=== PATIENT | female | born 1995 | race Caucasian/White ===

== ENCOUNTER → 2021-01-19 | Outpatient (CLI) | payer OTHER ==
--- NOTE | 2021-01-19 07:52 | REP ---
INDICATION: ANATOMY COMPARISON: None. TECHNIQUE: Transabdominal obstetrical ultrasound with color Doppler evaluation. FINDINGS: Examination demonstrates a single live intrauterine in variable presentation. motion is identified by technologist. Placenta is noted anterior and grade 1 without evidence for placenta previa or abruption. Amniotic fluid volume is normal. Cervix measures 4.4 cm in length and appears closed.. Gestational age by LMP 19 weeks 3 days with OPAL 06/12/2021. Gestational age by current measurements 19 weeks 4 days with OPAL 06/11/2021. Gestational age based on 1st trimester examination 18 weeks 5 days with OPAL 06/17/2021. FHR equals 147 beats per minute. BPD: 4.5 cm at there is 19 weeks 4 days HC: 17.0 cm at 19 weeks 4 days AC: 14.3 cm at 19 weeks 5 days FL: 3.0 cm at there is 19 weeks 3 days HL: 3.0 cm at 19 weeks 6 days HC/AC: 1.19 Estimated weight 298 grams (89thpercentile). Anatomical assessment demonstrates normal structures including cranium, choroid plexus, cavum, cerebellum/posterior fossa, facial features, lungs, four-chamber heart/ventricular outflow tracts, diaphragm, stomach, cord insertion/three-vessel cord, kidneys/bladder, spine, and extremities. IMPRESSION: Single live intrauterine in variable presentation demonstrating appropriate interval growth. Anatomical assessment is complete and normal. <Electronically signed by Miguel Alva > 01/19/21 [id number]
== END ==
LOC: M WHC 06:45
PROVIDERS: ATTEND Advanced Practice Midwife
DX: Z34.82 Encounter for supervision of other normal pregnancy, second trimester (principal); Z3A.19 19 weeks gestation of pregnancy

== ENCOUNTER → 2021-03-31 | Outpatient (CLI) | payer OTHER ==
[2021-03-31 15:40] LABS: HEMATOCRIT 35.1 % (36.0-47.0); HEMOGLOBIN 11.3 g/dl (12.0-15.5); MEAN CORPUSCULAR HEMOGLOBIN 31.2 pg (27.0-33.0); MEAN CORPUSCULAR HGB CONC 32.2 g/dl (32.0-36.5); PLATELET COUNT, AUTOMATED 216 10^3/uL (150-450); RED BLOOD COUNT 3.62 10^6/uL (4.00-5.40); WHITE BLOOD COUNT 10.2 10^3/uL (4.0-10.0)
== END ==
LOC: M PLALAB 10:52
PROVIDERS: ATTEND Obstetrics & Gynecology
DX: Z34.82 Encounter for supervision of other normal pregnancy, second trimester (principal); Z3A.23 23 weeks gestation of pregnancy
CPT/HCPCS: 36415; 82950; 85027; 86850; 86900; 86901; G0463

== ENCOUNTER → 2021-05-15 | Outpatient (REF) | payer OTHER | LOC: M PLALAB 13:46 | PROVIDERS: ATTEND Advanced Practice Midwife | DX: Z34.83 Encounter for supervision of other normal pregnancy, third trimester (principal) ==

== ENCOUNTER → 2021-05-28 | Outpatient (CLI) | payer OTHER ==
--- NOTE | 2021-05-28 13:26 | REP ---
INDICATION: GROWTH/JOB/HX MACROSOMIA COMPARISON: 01/19/2021 TECHNIQUE: Transabdominal obstetrical ultrasound with color Doppler evaluation. FINDINGS: Examination demonstrates a single live intrauterine in cephalic presentation. motion is identified by technologist. Placenta is noted anterior and grade 3 without evidence for placenta previa or abruption. Amniotic fluid volume is normal. Cervix measures 5.1 cm in length and appears closed.. Selected gestational age: Thirty-seven weeks 1 day with OPAL 06/17/2021. Gestational age by current measurements 38 weeks 1 day with OPAL 06/10/2021. FHR equals 133 beats per minute. BPD: 9.4 cm at 38 weeks 0 days HC: 33.2 cm at 37 weeks 6 days AC: 34.1 cm at 38 weeks 0 days FL: 7.5 cm at 38 weeks 2 days HL: 6.6 cm at 38 weeks 3 days HC/AC: 0.97 Estimated weight 3384 grams (79thpercentile). JOB: 15.7 cm Umbilical artery SD ratio: 2.18 IMPRESSION: Single live advanced gestation in cephalic presentation demonstrating appropriate estimated weight and growth. <Electronically signed by Miguel Alva > 05/28/21 [id number]
== END ==
LOC: M WHC 10:52
PROVIDERS: ATTEND Advanced Practice Midwife
DX: O09.293 Supervision of pregnancy with other poor reproductive or obstetric history, third trimester (principal); Z3A.38 38 weeks gestation of pregnancy

== ENCOUNTER 2021-06-12 11:33 | Inpatient (IN) | payer OTHER ==
[~2021-06-12] VITALS: Ht 160 cm; Wt 71.9 kg
[2021-06-12] VITALS (19 sets, daily range): BP systolic 119–139; BP diastolic 60–81
[2021-06-12] MEDS ORDERED: TRANEXAMIC ACID INJection 1,000 MG in NS 100 ML IV PRN (11:50)
[2021-06-12] MEDS ORDERED: LACTATED RINGER'S 1000 ML IV STA (11:50)
[2021-06-12] MEDS ORDERED: METHYLERGONOVINE MALEATE 0.2 MG/ML VIAL (J2210) IM PRN (11:50)
[2021-06-12] MEDS ORDERED: LIDOCAINE 1% MDV 20ML VIAL INFIL PRN (11:50)
[2021-06-12] MEDS ORDERED: CARBOPROST TROMETHAMINE 250 MCG/ML AMP IM PRN (11:50)
[2021-06-12] MEDS ORDERED: OXYTOCIN DRIP 30 UNITS in IV 1 EA IV PRN (11:50)
[2021-06-12 12:23] LABS: HEMOGLOBIN 10.6 g/dl (12.0-15.5); MEAN CORPUSCULAR HGB CONC 31.2 g/dl (32.0-36.5); MEAN CORPUSCULAR VOLUME 89.7 fl (80.0-96.0); PLATELET COUNT, AUTOMATED 224 10^3/uL (150-450); RED BLOOD COUNT 3.79 10^6/uL (4.00-5.40); WHITE BLOOD COUNT 10.8 10^3/uL (4.0-10.0)
[2021-06-12] MEDS ORDERED: STUACAP PO (12:26)
[2021-06-12] MEDS ORDERED: METO200T28 PO (12:26)
[2021-06-12] MEDS: LR 1,000 ML IV SCH ×2 (13:00→20:11)
[2021-06-12] MEDS ORDERED: OXYTOCIN DRIP 30 UNITS in IV 1 EA IV SCH (13:00)
--- NOTE | 2021-06-12 13:01 | HPEPDOC ---
Obstetrical History & Physical General Date of Admission Jun 12, 2021 at 11:33 Primary Care Physician: MOHIT ARIZMENDI CNM History of Present Illness Macarena is a 26-year-old female who is a at 39.2 weeks gestation with an OPAL of 06/17/21 based off her first trimester ultrasound and consistent with her LMP. She transferred care to [facility]. Her has been complicated by palpitations, which she has been taking Metoprolol to help manage them. She has also been to the barmaid and had a normal echocardiogram. She presents to L&D for an elective induction of labor. She states her baby has been active, denies vaginal bleeding, leaking of fluid. Reports [place] contractions. Chief Complaint: Induction of labor Information Provided By: Patient Age: 26 : 2 Term: 1 Pre-term: 0 Abortions: 0 Livin Care Care: Good Care Dating Final EDC: Jun 17, 2021 Final EDC by: 1st trimester (US) EGA at Admission: 39.2 Antepartum Course Diagnos(e)s heart palpitations during improved with metoprolol 25 mg daily. Height (inches): 63 Pre- weight (lbs.): 115 Admission Weight (lbs.): 157 Change in Weight (lbs.): 42 Past Medical History Past Obstetrical History : Past Obstetrical History: Primgravida Date of Delivery: Jun 17, 2018 Gestation: 40.1 Type of Delivery: Spontaneous Vaginal Del. Sex of Infant: Female (8 lbs 14 oz) Complications: No EXPLOSIVE ORDNANCE DISPOSAL SPECIALIST History: No pertinent history Past Medical History Medical History hairline hip fracture Surgical History: Denies/None Family History Significant Family History: Diabetes, Heart disease, Other ([place], Factor V Leiden) Social History Marital Status: Family situation: Spouse/partner home Psychosocial History: No pertinent psych hx * Smoker: non-smoker Alcohol: Denies Drugs: denies Abuse Violence Screening Have you been hit/kicked/slapp: No Have you been sexually assault: No Imunizations Tdap status: current Allergies Coded Allergies: No Known Allergies (Unverified , 06/12/21) NKA Medications Scheduled Metoprolol Succinate (Metoprolol Succinate) 200 Mg Tab.er.24h, 25 MG PO DAILY Miscellaneous Medications Pnv No.63/Iron,Carb/Folic/Dha (Juno One Capsule) 1 Each Capsule, 1 CAP PO Physical Examination Physical Examination GENERAL: Alert and oriented times three. ABDOMEN: Gravid and non-tender to touch. FETUS: Is vertex (VTX) by sterile vaginal examination (SVE), fetus is vertex (VTX) by Jake. EFW 4000 grams LUNGS: Regular rate and rhythm without use of accessory muscles. EXTREMITIES: No edema. No clonus. Deep tendon reflexes (DTRs) + 2. Vital Signs/I&O Vital Signs Date Time Temp Pulse Resp B/P (MAP) Pulse Ox O2 Delivery O2 Flow Rate FiO2 06/12/21 11:51 98.1 99 16 128/80 (96) Room Air Laboratory Data 24H LABS Laboratory Tests 2 06/12/21 12:11: Nucleated Red Blood Cells % (auto) 0.0 CBC/BMP Laboratory Tests 06/12/21 12:11 Urine Culture: No Growth Pertinent Laboratoy Data Blood Type: A+ RBC Antibody Screen: Negative HIV: Unknown (drawn today) Hepatitis B: Unknown (drawn today) Hepatitis C: Unknown (drawn today) Rapid Plasma Reagin: Nonreactive Rubella: Immune Varicella: Immune Chlamydia/Gonorrhea: Negative Group B Streptococcus: Negative Glucose Tolerance Test: 92 Anatomy Ultrasound Ultrasound Date: May 28, 2021 Placenta Location: Posterior Normal Anatomy: Yes Placenta Previa: No Estimated Weight (grams): 3384 Vaginal Examination Dilation: 4 cm Effacement: other (75%) Station: -1 Cervical Consistency: Soft Cervical Position: Anterior Presentation: Cephalic presentation Position: Vertex (occiput) Assessment Heart Rate (FHR): 140 Variability: Moderate Accelerations: Positive Decelerations: None Tocometer Contractions: Yes Frequency: regular, every 2-5 min. Multi-drug resistant Organism: No history of MDRO Assessment/Plan Assessment IUP at 39.2 weeks GBS negative Category I FHR tracing elective IOL Plan Admit to L&D. OOB ad krystal. Diet: clears. Group B Streptococcus (GBS) negative. Labs and intravenous (IV) per unit protocol. Counseled on Pitocin for induction of labor. Anesthesia consult per patient's request. Lactated Ringers (LR): Bolus 800 mL prior to epidural, then at 125 mL/hr. Anticipate cervical change and . C-S as appropriate. MOHIT ARIZMENDIM Jun 12, 2021 13:01
[2021-06-12] MEDS ORDERED: FENTANYL 2MCG/ML ROPIVACAINE 0.2% IN 0.9% NACL 100ML IVBAG As Ordered ONE ×2 (15:14→15:15)
[2021-06-12] MEDS ORDERED: LACTATED RINGER'S 1000 ML IV PRN (15:16)
[2021-06-12] MEDS ORDERED: EPIDURAL/PCA KEYS XX PRN (15:16)
[2021-06-12] MEDS ORDERED: REFRIGERATOR IV KEYS XX PRN (15:16)
[2021-06-12] MEDS ORDERED: ePHEDrine SULFATE 25 MG/5 ML(5MG/ML) SYRINGE IV PRN (15:16)
[2021-06-12] MEDS ORDERED: diphenhydrAMINE 50MG/ML VIAL (J1200) IV PRN (15:16)
[2021-06-12] MEDS ORDERED: FENTANYL/ROPIVACAINE/NACL BAG 100 ML EPIDURAL SCH (15:16)
[2021-06-12] MEDS ORDERED: ONDANSETRON 4MG/2ML VIAL IV PRN (15:16)
[2021-06-12] MEDS ORDERED: EPIDURAL COMMENT XX SCH (15:16)
[2021-06-12] MEDS ORDERED: NALOXONE INJ 0.4MG/1ML VIAL (J2310 PER 1MG) IV PRN (15:16)
--- NOTE | 2021-06-12 16:45 | IPNPDOC ---
Obstetrical Progress Note Date of Service Jun 12, 2021 Subjective Patient reports she is comfortable with her epidural. Objective Vital Signs Date Time Temp Pulse Resp B/P (MAP) Pulse Ox O2 Delivery O2 Flow Rate FiO2 06/12/21 15:56 80 125/63 (83) 06/12/21 15:27 98.0 18 06/12/21 11:51 Room Air Assessment Heart Rate (FHR): 140 Variability: Moderate Accelerations: Positive Decelerations: None Heart Rate Tracing: Category I Tocometer Contractions: Yes Frequency: regular, every 1-3 min. Sterile Vaginal Examination Dilation: 5 cm Effacement (%): 80% Station: -1 Cervical Consistency: Soft Cervical Position: Anterior Postion/Presentation: Cephalic presentation Assessment and Plan Age: 26 EGA at Admission: 39.2 Status: Reassuring Group B Streptococcus: Negative Anticipate: Vaginal Delivery Additional Comments AROM to a scant amount of clear fluid after consent from patient. IV Pitocin is at 6 mu/min. MOHIT ARIZMENDI CNM Jun 12, 2021 16:45
[2021-06-12 18:11] LABS: HEPATITIS B SURFACE ANTIGEN NEGATIVE (NEGATIVE); HEPATITIS C VIRUS ABY INDEX < 0.0 INDEX (<0.8); HIV 1&2 SCREEN CENTAUR NEGATIVE (NEGATIVE)
--- NOTE | 2021-06-12 18:24 | DNPDOC ---
[facility] Delivery Note Delivery Note DATE OF DELIVERY: 06/12/21 at 1745 PREDELIVERY DIAGNOSIS: 39-2/7 weeks' gestation and induction of labor. POST DELIVERY DIAGNOSIS: Delivered. PROCEDURE: Spontaneous vaginal delivery. TUFTING MACHINE OPERATOR: Mohit Quintanilla CNM ANESTHESIA: epidural. ESTIMATED BLOOD LOSS: 300 mL. FINDINGS: 9 pounds 8 ounces; 4320 grams; male , Score 9/9, macrosomia. DELIVERY SUMMARY: Macarena is now a who presented to L&D for an elective induction of labor. She received IV Pitocin for induction and requested an epidural for pain management. She progressed to fully dilated at 1733 and pushed to a living male in the ANASTASIYA position with restitution to LOT. The anterior shoulder delivered with ease and the corpus immediately followed. The baby was placed [id number] active and crying. The cord was clamped after 2+ minutes and cut by the FOB. A 3-vessel cord was noted. The placenta delivered spontaneously and intact at 1753. Uterine hemostasis was achieved via rapid infusion of IV Pitocin and fundal massage. The vagina was inspected and found to be intact. They plan on naming their son Hung Iniguez. She plans to breastfeed. All counts of instruments and sponges are correct. Both mom and baby are stable. MOHIT QUINTANILLA CNM Jun 12, 2021 18:24
[2021-06-12] MEDS ORDERED: ACETAMINOPHEN TAB 650MG DOSE (2X325MG) PO PRN (21:15)
[2021-06-12] MEDS ORDERED: DIBUCAINE 1% OINTMENT 30GM TOP PRN (21:15)
[2021-06-12] MEDS ORDERED: MEASLES,MUMPS,RUBELLA VACCINE INJ (MMR-II) (90707) SC SCH (21:15)
[2021-06-12] MEDS ORDERED: RHOGAM 300 MCG (1500 IU) INJ (J2790) IM SCH (21:15)
[2021-06-12] MEDS ORDERED: IBUPROFEN 800 MG TAB PO PRN (21:15)
[2021-06-12] MEDS ORDERED: DOCUSATE SODIUM 100MG CAPSULE PO PRN (21:15)
[2021-06-12] MEDS ORDERED: ANUSOL HC CREAM 30GM TOP PRN (21:15)
[2021-06-12] MEDS ORDERED: IBUPROFEN 600MG TAB PO PRN (21:15)
[2021-06-12] MEDS ORDERED: METHYLERGONOVINE MALEATE 0.2 MG TAB PO PRN (21:15)
[2021-06-12] MEDS ORDERED: ACETAMINOPHEN 500 MG TAB PO PRN (21:15)
[2021-06-13 05:52] VITALS: BP 115/73
[2021-06-13] MEDS: PRENATAL VITAMINS CHEWABLE TABLET PO SCH (08:24)
--- NOTE | 2021-06-13 11:45 | IPNPDOC ---
Progress Note Date of Service: Jun 13, 2021 Day#: 1 Progress Note SUBJECT: Doing well without complaints. Ambulating, voiding and pain is well- controlled. Reports minimal lochia. OBJECTIVE: VITAL SIGNS: Within normal limits, afebrile. Alert and oriented times three. Abdomen: Fundus firm at U-2. Soft, NTTP. Ext: neg calf tenderness. ASSESSMENT: day #1 status post . Recovering in stable condition. PLAN: 1. Continue routine care 2. Discharge plans for tomorrow VS, I&O, 24H, Fishbone Vital Signs/I&O Vital Signs Date Time Temp Pulse Resp B/P (MAP) Pulse Ox O2 Delivery O2 Flow Rate FiO2 06/13/21 05:52 98.0 77 16 115/73 (87) 97 Room Air I&O- Last 24 Hours up to 6 AM 06/13/21 06:00 Output Total 300 ml Balance -300 ml Laboratory Data 24H LABS Laboratory Tests 2 06/12/21 12:11: Nucleated Red Blood Cells % (auto) 0.0, Syphilis Serology NONREACTIVE, Hepatitis B Surface Antigen NEGATIVE, Hepatitis C Antibody Index < 0.0, HIV Antigen/Antibody Combo Qual NEGATIVE 06/12/21 18:13: Serology Scanned Report Hepatitis B Testing CBC/BMP Laboratory Tests 06/12/21 12:11 ANA ROSA FOY MD. Jun 13, 2021 11:45
[2021-06-13 17:41] VITALS: BP 118/68
[2021-06-14 06:00] VITALS: BP 123/69
[2021-06-14] MEDS: PRENATAL VITAMINS CHEWABLE TABLET PO SCH (10:47)
== END 2021-06-14 11:30 | disposition home or self-care (01) | DRG 807 ==
LOC: M LDI 11:33 → M OBS 20:11
PROVIDERS: ADMIT Advanced Practice Midwife; ATTEND Advanced Practice Midwife
PROC: 10E0XZZ Delivery of Products of Conception, External Approach (ICD-10-PCS; principal; 2021-06-12)
PROC: 3E033VJ Introduction of Other Hormone into Peripheral Vein, Percutaneous Approach (ICD-10-PCS; 2021-06-12)
PROC: 10907ZC Drainage of Amniotic Fluid, Therapeutic from Products of Conception, Via Natural or Artificial Opening (ICD-10-PCS; 2021-06-12)
DX: O36.60X0 Maternal care for excessive fetal growth, unspecified trimester, not applicable or unspecified (principal); Z37.0 Single live birth; Z3A.39 39 weeks gestation of pregnancy; R00.2 Palpitations

== ENCOUNTER → 2021-10-23 | Outpatient (REF) | payer OTHER ==
[~2021-10-23] MED LIST: METO200T28 PO; STUACAP PO
[2021-10-26 12:09] LABS: GC DNA AMPLIFICATION NEGATIVE (NEGATIVE)
== END ==
LOC: M SFHCWAGY 10:19
PROVIDERS: ATTEND Advanced Practice Midwife
DX: Z12.4 Encounter for screening for malignant neoplasm of cervix (principal); R87.610 Atypical squamous cells of undetermined significance on cytologic smear of cervix (ASC-US)
CPT/HCPCS: 87624; 87661; G0123; G0463